=== PATIENT | female | born 1970 | race African-American/Black ===

== ENCOUNTER 2024-03-06 04:47 | Emergency (ER) | payer MEDICAID ==
[~2024-03-06] VITALS: Ht 160 cm; Wt 75.0 kg
[2024-03-06 05:00] VITALS: BP 145/88; PULSE 74; RESP 18; O2SAT 98
[2024-03-06] MEDS: KETOROLAC TROMETH 60MG/2ML VIAL IM ONE (06:43)
[2024-03-06] MEDS ORDERED: HYDR-4902 PO (06:46)
[2024-03-06] MEDS ORDERED: IBU600T PO (06:46)
== END 2024-03-06 06:57 | disposition home or self-care (01) ==
LOC: ER 04:47
DX: M16.12 Unilateral primary osteoarthritis, left hip (principal); F17.210 Nicotine dependence, cigarettes, uncomplicated; F12.90 Cannabis use, unspecified, uncomplicated; E78.5 Hyperlipidemia, unspecified; G43.909 Migraine, unspecified, not intractable, without status migrainosus; Z98.51 Tubal ligation status
CPT/HCPCS: 73502; 96372; 99283; J1885

== ENCOUNTER 2024-12-31 12:14 | Inpatient (IN) | payer MEDICAID ==
[~2024-12-31] VITALS: Ht 162.6 cm; Wt 98.5 kg
[~2024-12-31 12:14] MED LIST: HYDR-4902 PO; IBU600T PO
--- NOTE | 2024-12-31 13:00 | DVH ---
XY CHEST PORTABLE, HISTORY: body swelling, sob COMPARISON: None None TECHNICAL DATA: 1 view of the chest was obtained. FINDINGS: Lines and tubes: A right chest wall portacatheter is seen. Cardiomediastinal silhouette: normal Pulmonary vasculature: normal Lung expansion: normal Lung airspace: normal Lung interstitium: normal Pleura: normal Pneumothorax: no Bones: Unremarkable Other: no IMPRESSION: No acute intrathoracic abnormality.
--- NOTE | 2024-12-31 13:29 | ED.PDOC ---
HPI Comments 54-year-old female presents with a chief complaint of swelling to her hands and legs with associated flank pain. Patient states that she recently had a lymphectomy and lung resection at [facility] for her Stage 3 Lung Cancer. Patient mentions that her pain is localized to her right flank, radiating to her abdomen, and states that the Oxycodone and Gabapentin she was prescribed has not helped her pain. Patient is currently not on chemotherapy, but was prior to the surgery. Patient's surgery was December 12, 2024. PMHx: Stage 3 Lung Cancer, HTN, HLD PSHx: Lung lobectomy, Lymphectomy HPI: Poor Historian. Patient points to her xiphoid right lower ribcage region pain where her surgical site was. REVIEW OF SYSTEMS: CONSTITUTIONAL: Denies acute: fever, diaphoresis, chills, HEAD: Denies acute: headache, photophobia Eyes: Denies acute: Double vision, vision loss, eye pain, eye discharge. EARS: Denies acute: tinnitus, hearing loss, ear discharge, ear pain, THROAT: Denies acute: sore throat, swelling, difficulty swallowing , pain with swallowing, change in voice. NECK: Denies acute: neck pain, neck swelling, stiff neck. HEART: Denies acute : palpitations, LUNGS: Denies acute: SOB, wheezing, cough, hemoptysis ABDOMEN: Denies acute: Nausea, Vomiting, diarrhea, melena , hematemesis, hematochezia SKIN: Denies acute: rash, redness, lesions, itchiness. EXTREMITIES: Denies acute: calf pain, numbness, tingling, weakness, Denies acute: Low back pain. Neuro: Denies acute: focal neurological deficit, motor or sensory focal neurological deficit, tremors, seizure like activity, confusion, dizziness, change in mental status, loss of bowel or bladder function, cauda equina like symptoms. : Denies acute: dysuria, hematuria, flank pain, increase in urinary frequency. PSYCH: Denies acute: hallucination, suicidal ideation, homicidal ideation. FEMALE: Denies acute: abnormal vaginal bleeding, foul odor, unusual discharge. PHYSICAL EXAM: General: -----[id number]---acute distress, awake and alert. Head: normocephalic, atraumatic. Neck: supple, trachea is midline, no swelling. Throat: Normal phonation. Eyes:, no erythema, no purulent discharge, no proptosis, no icterus. Heart: regular rate, regular rhythm, no significant murmur appreciated. Lungs: no apparent respiratory distress, Able to speak in full sentences. No wheezing, no rhonchi, no crackles. No stridors Clear to auscultation bilaterally. Abdomen: Mild epigastric tender to palpation, non distended, soft, no guarding, no rebound, + bowel sounds. Evaluation of the surgical site: Incisions are clean dry and intact. Stitches are in place. No erythema or findings to suggest infection. Neuro: Awake, Alert, oriented to name, self, situation, follows commands GCS=15. Speech is normal. Skin: no petechia, no purpura, no cyanosis, non-pale, not jaundice. Lower extremities: --trace bilateral - Pitting edema no deformity, no focal swelling, no calf TTP. Noted mild puffiness of bilateral upper extremities. Makes eye contact. moves all four extremities. Face: no apparent facial droop. No CVA tenderness to percussion bilaterally. Ambulating in the ED independently. ED COURSE: DISCLAIMER: This medical document was created using an electronic medical record system with voice recognition software and computerized dictation system. Although this document has been carefully reviewed, there might still be some phonetic and typographical errors. Occasional wrong-word or "sound-alike" substitutions may have occurred due to the inherent limitations of voice recognition software. These areas are purely typographical due to imperfections of the software programs and do not reflect any compromise in the patient's medical care. Please read the chart carefully and recognize, using context, where these substitutions have occurred. Chief Complaint: Extremity Swelling Time Seen by MD: 13:22 Primary Care Provider: EFREN Reviewed Notes: Medications, Allergies Allergies: Coded Allergies: Sulfa Antibiotics (Verified Allergy, Unknown, 12/31/24) Home Meds Active Scripts Ibuprofen Micronized (MOTRIN TABLET) 600 Mg Tb, 600 MG PO TID PRN, #40 TAB *Black box warning-NSAIDS can increase risk of MD & hypertension, GI irritation, ulceration, bleed, perferation. Do not use post cardiac surgery. Use short duration/lowest effective dose. Prov:ASHLIE CINTRON MD 03/06/24 Hydrocodone-Acetaminophen (Hydrocodone Bitartrate/AC 5-325 mg) 1 Tab Tab, 1 TAB PO Q6HPRN PRN for 3 Days, #12 TAB Prov:ASHLIE CINTRON MD 03/06/24 Information Source: Patient Mode of Arrival: Ambulatory Past Medical History PAST MEDICAL HISTORY: Cancer, High Lipids, HTN Surgical History: BTL EDUCATION DEAN History: No Pertinent EDUCATION DEAN History Family History Family History: No family hx of DM, No family hx of Heart judah Social History Smoker: Cigarettes, Less Than 1 Pack/Day Alcohol: Rarely Drugs: Marijuana Lives In: Home Was a procedure done? Was a procedure done?: No CP Differential Dx Differential Diagnosis: N/A Differential Diagnosis: Other (Ddx include but not limitied to gastritis, musculoskeletal pain, radiculopathy, atypical chest pain, dissection, aneurysm, ACS, unstable angina, hiatal hernia, GERD, anxiety, costochondritis, PE, pneumothroax, neoplasm, cardiac ischemia, drug abuse, anemia.) Comment Leg swelling Ddx include but not limited to DVT, ischemic limb, pitting edema, volume overload, CHF, cellulitis, hematoma, compartment syndrome, dependent edema, venous stasis. X-Ray, Labs, Meds, VS Vital Signs Date Time Temp Pulse Resp B/P (MAP) Pulse Ox O2 Delivery O2 Flow Rate FiO2 12/31/24 18:29 158/95 12/31/24 18:15 82 19 100 Room Air* 0 21 12/31/24 18:15 98.9 82 19 158/95 (116) 100 98.9 12/31/24 14:30 137/93 12/31/24 14:20 93 16 191/99 (129) 100 12/31/24 13:57 98.3 94 16 154/95 (114) 96 98.3 12/31/24 12:19 98.5 98 18 148/88 97 98.5 Lab Test 12/31/24 18:05 12/31/24 15:45 12/31/24 13:10 Range/Units Troponin I High Sensitivity < 3 L < 3 L < 3 L </=34 ng/L Lactic Acid Level 1.9 2.1 *H 0.4-2.0 mmol/L C-Reactive Protein High Sensitivity 0.47 <1.0 mg/dL White Blood Count 6.7 4.4-10.8 10^3/uL Red Blood Count 3.51 L 4.0-5.20 10^6/uL Hemoglobin 11.5 L 12.2-16.2 g/dL Hematocrit 33.9 L 36.0-46.0 % Mean Corpuscular Volume 96.6 80.0-100.0 fL Mean Corpuscular Hemoglobin 32.6 H 28.0-32.0 pg Mean Corpuscular Hemoglobin Concent 33.8 32.0-36.0 g/dL Red Cell Distribution Width 14.3 11.8-14.3 % Platelet Count 342 140-450 10^3/uL Mean Platelet Volume 7.8 6.9-10.8 fL Neutrophils (%) (Auto) 56.2 37.0-80.0 % Lymphocytes (%) (Auto) 28.4 10.0-50.0 % Monocytes (%) (Auto) 7.0 0.0-12.0 % Eosinophils (%) (Auto) 7.4 H 0.0-7.0 % Basophils (%) (Auto) 1.0 0.0-2.0 % Neutrophils # (Auto) 3.8 1.6-8.6 10 ^3/uL Lymphocytes # (Auto) 1.9 0.4-5.4 10 ^3/uL Monocytes # (Auto) 0.5 0-1.3 10 ^3/uL Eosinophils # (Auto) 0.5 0-0.8 10 ^3/uL Basophils # (Auto) 0.1 0-0.2 10 ^3/uL Nucleated Red Blood Cells 0.2 % D-Dimer, Quantitative 4.43 H 0.0-0.49 mg/L FEU Sodium Level 143 136-145 mmol/L Potassium Level 3.8 3.5-5.1 mmol/L Chloride Level 110 H 98-107 mmol/L Carbon Dioxide Level 24 20-31 mmol/L Anion Gap 9 5-15 Blood Urea Nitrogen 14 9-23 mg/dL Creatinine 0.88 0.550-1.02 mg/dL Glomerular Filtration Rate Calc 78 >90 mL/min BUN/Creatinine Ratio 15.9 10.0-20.0 Serum Glucose 112 H 74-106 mg/dL Calcium Level 9.5 8.7-10.4 mg/dL Total Bilirubin 0.3 0.2-1.0 mg/dL Aspartate Amino Transferase (AST) 38 13-40 U/L Alanine Aminotransferase (ALT) 45 H 7-40 U/L Alkaline Phosphatase 116 46-116 U/L B-Type Natriuretic Peptide 30.90 0-100 pg/mL Total Protein 6.7 5.7-8.2 g/dL Albumin 4.1 3.2-4.8 g/dL Lipase 23 12-53 U/L Current Medications Medications (Trade) Dose Ordered Sig/Lucie Route Start Time Stop Time Status Last Admin Fentanyl Citrate 100 mcg ONCE ONCE IV 12/31/24 16:00 12/31/24 16:06 DC 12/31/24 18:29 Fentanyl Citrate 25 mcg ONCE ONCE IV 12/31/24 14:30 12/31/24 17:45 DC 12/31/24 14:30 PATIENT: NICKY VELÁSQUEZT: [id number]: [id number] : 1970 LOC: ER ROOM / BED: / AGE / SEX: 54 / F ADM STATUS: REG ER SERVICE [id number] ORDERING PHYSICIAN: MARGO STODDARD DO PROCEDURE(s): CTACH - CT ANGIO CHEST CONTRAST REASON: post surgical pain, elevated d dimer ORDER NUMBER(s): [id number], ACCESSION NUMBER(s): [id number] EXAM: CT CT ANGIO CHEST CONTRAST HISTORY: post surgical pain, elevated d dimer TECHNIQUE: CT angiogram was performed. CT scans at this facility use dose modulation, iterative reconstruction, and/or weight based dosing when appropriate to reduce radiation dose to as low as reasonably achievable. Coronal and sagittal reformations and maximum intensity projection images were created from the transaxial source data by the diagnostic technologist and workstation, as well as 3-D volume rendered images with MIPs. COMPARISON: None FINDINGS: [LOWER NECK]: Unremarkable [LYMPH NODES/MEDIASTINUM]: No abnormal lymph nodes by CT size criteria [CARDIOVASCULAR]: Normal cardiac size. No pericardial effusion. No aneurysmal dilatation of the great vessels. No significant coronary artery calcifications. [PULMONARY ARTERIES]: No pulmonary arterial filling defect. Normal caliber of the main pulmonary artery. No evidence of elevated right heart pressures. [UPPER ABDOMEN]: Unremarkable. [MUSCULOSKELETAL]: No acute fracture or aggressive focal osseous lesion. Multilevel degenerative change of the visualized spine. [CHEST WALL]: Right anterior chest Port-A-Cath [LUNG PARENCHYMA/PLEURAL SPACE]: Loculated right-sided small pleural effusion. Peribronchovascular distribution of partial segmental collapse of the right middle lobe. Right hilar lymph nodes measuring up to 12-13 mm, indeterminate. IMPRESSION: 1. No CTA evidence of pulmonary embolism. 2. Loculated right-sided small pleural effusion. 3. Peribronchovascular distribution of partial segmental collapse of the right middle lobe. 4. hilar lymph nodesIndeterminate right measuring up to 12-13 mm. ATED BY: CAROLE WALL MD DICTATED DATE/TIME: 12/31/241641 SIGNED BY: CAROLE WALL MD SIGNED DATE/TIME: 12/31/241641 Time of 1ST Reevaluation: 13:52 Reevaluation 1ST: Unchanged Patient Education/Counseling: Diagnosis, Treatment Family Education/Counseling: Other Comments MDM: patient presented with the above HPI.---postoperative pain and extremity swelling---workup was initiated. patient was found with the above mentioned diagnosis. the following medications were ordered: please refer to order lists of meds and tests obtained by myself Dr. Stoddard. Patient ED course and VS have been stabilized. Patient has been reassessed in the ED and remained in a stable condition. Pertinent incidental findings were discussed with the patient and/or family. Patient/family voices understanding and is agreeable with plan. Patient has been observed in the ED adequate length of time to insure improvement/stability. Escalation of care considered: Consideration of escalation to observation or admission Patient was ADMITTED to the medicine team for further evaluation and treatment of their presentation and for pain control. All the reports of any imaging studies that were ordered by myself were reviewed by myself. Departure 1 Departure Time of Disposition: 16:49 Impression: Primary Impression: Postoperative pain Additional Impressions: Chest pain Swelling of extremity Disposition: ADMITTED INPATIENT Admit to: [facility] Condition: Guarded Discharged With: Self Critical Care Note Critical Care Time?: No Heart Score Heart Score: Heart Score Response (Comments) Value History N/A 0 EKG N/A 0 Age N/A 0 Risk Factors N/A 0 Troponin N/A 0 Total 0 I personally scribed for MARGO STODDARD DO ([email or web address]) on 12/31/24 at 13:29. Electronically submitted by [place] ([email or web address]). I personally scribed for MARGO STODDARD DO ([email or web address]) on 12/31/24 at 13:38. Electronically submitted by [place] ([email or web address]). I personally scribed for MARGO STODDARD DO ([email or web address]) on 12/31/24 at 17:08. Electronically submitted by [place] ([email or web address]). MARGO STODDARD DO Dec 31, 2024 13:29
[2024-12-31 13:36] LABS: Hematocrit 33.9 % (36.0-46.0); Hemoglobin 11.5 g/dL (12.2-16.2); Mean Corpuscular Hemoglobin 32.6 pg (28.0-32.0); Mean Corpuscular Volume 96.6 fL (80.0-100.0); Nucleated Red Blood Cells % 0.2 %
[2024-12-31 13:48] LABS: Albumin 4.1 g/dL (3.2-4.8); Anion Gap 9 (5-15); BUN/Creatinine Ratio 15.9 (10.0-20.0); Bilirubin, Total 0.3 mg/dL (0.2-1.0); Blood Urea Nitrogen 14 mg/dL (9-23); Calcium 9.5 mg/dL (8.7-10.4); Carbon Dioxide 24 mmol/L (20-31); Potassium 3.8 mmol/L (3.5-5.1); Sodium 143 mmol/L (136-145); Total Protein 6.7 g/dL (5.7-8.2)
[2024-12-31 13:57] LABS: Alanine Aminotransferase 45 U/L (7-40); Alkaline Phosphatase 116 U/L (46-116); Chloride 110 mmol/L (98-107); Glucose 112 mg/dL (74-106)
[2024-12-31 13:59] LABS: Lactic Acid w/Reflex 2.1 mmol/L (0.4-2.0)
[2024-12-31] MEDS: fentaNYL CITRATE 100 MCG/2 ML VL IV ONE ×3 (14:30→18:29)
[2024-12-31] MEDS: IOHEXOL 350 MG/ML 100ML IJ ONE ×2 (15:25→15:56)
--- NOTE | 2024-12-31 16:45 | DVH ---
EXAM: CT CT ANGIO CHEST CONTRAST HISTORY: post surgical pain, elevated d dimer TECHNIQUE: CT angiogram was performed. CT scans at this facility use dose modulation, iterative recon struction, and/or weight based dosing when appropriate to reduce radiation dose to as low as reasonab ly achievable. Coronal and sagittal reformations and maximum intensity projection images were created from the transaxial source data by the manufacturing engineering technologist and workstation, as well as 3-D volume render ed images with MIPs. COMPARISON: None FINDINGS: [LOWER NECK]: Unremarkable [LYMPH NODES/MEDIASTINUM]: No abnormal lymph nodes by CT size criteria [CARDIOVASCULAR]: Normal cardiac size. No pericardial effusion. No aneurysmal dilatation of the great vessels. No significant coronary artery calcifications. [PULMONARY ARTERIES]: No pulmonary arterial filling defect. Normal caliber of the main pulmonary alexander ry. No evidence of elevated right heart pressures. [UPPER ABDOMEN]: Unremarkable. [MUSCULOSKELETAL]: No acute fracture or aggressive focal osseous lesion. Multilevel degenerative hernandez ge of the visualized spine. [CHEST WALL]: Right anterior chest Port-A-Cath [LUNG PARENCHYMA/PLEURAL SPACE]: Loculated right-sided small pleural effusion. Peribronchovascular di stribution of partial segmental collapse of the right middle lobe. Right hilar lymph nodes measuring up to 12-13 mm, indeterminate. IMPRESSION: 1. No CTA evidence of pulmonary embolism. 2. Loculated right-sided small pleural effusion. 3. Peribronchovascular distribution of partial segmental collapse of the right middle lobe. 4. hilar lymph nodesIndeterminate right measuring up to 12-13 mm.
--- NOTE | 2024-12-31 18:01 | DVHHP2 ---
Admitting Diagnosis: Arm swollen History of Present Illness 54-year-old female presents with a chief complaint of swelling to her hands and legs with associated flank pain. Patient states that she recently had a lymphectomy and lung resection at [facility] for her Stage 3 Lung Cancer. Patient mentions that her pain is localized to her right flank, radiating to her abdomen, and states that the Oxycodone and Gabapentin she was prescribed has not helped her pain. Patient is currently not on chemotherapy, but was prior to the surgery. Patient's surgery was December 12, 2024. PMHx: Stage 3 Lung Cancer, HTN, HLD PSHx: Lung lobectomy, Lymphectomy REVIEW OF SYSTEMS: CONSTITUTIONAL: Denies acute: fever, diaphoresis, chills, HEAD: Denies acute: headache, photophobia Eyes: Denies acute: Double vision, vision loss, eye pain, eye discharge. EARS: Denies acute: tinnitus, hearing loss, ear discharge, ear pain, THROAT: Denies acute: sore throat, swelling, difficulty swallowing , pain with swallowing, change in voice. NECK: Denies acute: neck pain, neck swelling, stiff neck. HEART: Denies acute : palpitations, LUNGS: Denies acute: SOB, wheezing, cough, hemoptysis ABDOMEN: Denies acute: Nausea, Vomiting, diarrhea, melena , hematemesis, hematochezia SKIN: Denies acute: rash, redness, lesions, itchiness. EXTREMITIES: Denies acute: calf pain, numbness, tingling, weakness, Denies acute: Low back pain. Neuro: Denies acute: focal neurological deficit, motor or sensory focal neurological deficit, tremors, seizure like activity, confusion, dizziness, change in mental status, loss of bowel or bladder function, cauda equina like symptoms. : Denies acute: dysuria, hematuria, flank pain, increase in urinary frequency. PSYCH: Denies acute: hallucination, suicidal ideation, homicidal ideation. FEMALE: Denies acute: abnormal vaginal bleeding, foul odor, unusual discharge. 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 Do not use post cardiac surgery. Use short duration/lowest effective dose. Prov:ASHLIE CINTRON MD 03/06/24 Hydrocodone-Acetaminophen (Hydrocodone Bitartrate/AC 5-325 mg) 1 Tab Tab, 1 TAB PO Q6HPRN PRN for 3 Days, #12 TAB Prov:ASHLIE CINTRON MD 03/06/24 Current Medications Current Medications Medications (Trade) Dose Ordered Sig/Lucie Route PRN Reason Start Time Stop Time Status Last Admin Hydromorphone HCl (Dilaudid Injection) 1 mg Q4HPRN PRN IV SEVERE PAIN (7-10 PAIN SCALE) 12/31/24 19:15 UNV Hydromorphone HCl (Dilaudid Injection) 1 mg Q4HPRN PRN IV break thru pain 12/31/24 19:15 UNV Vancomycin HCl 0 ml @ 0 mls/hr UD IV 12/31/24 19:15 UNV Piperacillin Sod/ Tazobactam Sod 100 ml @ 25 mls/hr Q8HR IV 12/31/24 22:00 UNV Pantoprazole Sodium (Protonix) 40 mg DAILY IV 01/01/25 10:00 UNV Sodium Chloride (Saline Lock Ns) 10 ml Q8HR IV 12/31/24 22:00 UNV Docusate Sodium (Colace Capsule) 100 mg BIDPRN PRN PO FOR CONSTIPATION 12/31/24 19:15 UNV Acetaminophen (Tylenol Tablet) 650 mg Q6HP PRN PO PAIN SCALE 1-3 OR TEMP>100.4 12/31/24 19:15 UNV Acetaminophen/ Hydrocodone Bitart ([place] 5/325MG Tab) 1 tab Q4HP PRN PO MODERATE PAIN (4-6 PAIN SCALE) 12/31/24 19:15 UNV Ondansetron HCl (Zofran) 4 mg Q4HP PRN IV NAUSEA / VOMITING 12/31/24 19:15 UNV Enoxaparin Sodium (Lovenox) 40 mg DAILY SC 01/01/25 10:00 UNV Hydralazine HCl (Apresoline Injection) 10 mg Q6HP PRN IV SBP>150 12/31/24 19:15 UNV Diphenhydramine HCl (Benadryl Injection) 25 mg Q4HP PRN IV FOR ITCHING 12/31/24 19:15 UNV Vital Signs Vital Signs Date Time Temp Pulse Resp B/P (MAP) Pulse Ox O2 Delivery O2 Flow Rate FiO2 12/31/24 18:29 158/95 12/31/24 18:15 82 19 100 Room Air* 0 21 12/31/24 18:15 98.9 98.9 Physical Exam Generally-54 years old woman, overweight, lying in bed. Mild distress HEENT-atraumatic normocephalic Heart-regular rate and rhythm Lungs decreased breath sounds right lung tan Abdomen soft nontender nondistended Musculoskeletal-bilateral upper extremity edema, mild swelling lower extremity Neuro-AO x3, no focal deficits SEPSIS Sepsis Screen Date sepsis recognized/suspect: Dec 31, 2024 Time Sepsis recognized/suspect: 1221 Recent Procedure: No On Antibiotic Therapy: No Respiratory Rate >20: No Heart Rate >90: Yes Temp<36 C (96.8 F) or >38.3 C: No SBP <90 or MAP <65 mmHG: No New Acute Mental Status Change: No Is the patient on CPAP, BIPAP,: No Physician Orders Boiler Technician (12/31/24 ) Chest Portable (12/31/24 12:37) Electrocardigram (12/31/24 12:37) Ct Angio Chest Contrast (12/31/24 14:29) Lt Upper Extremity W Contras (12/31/24 19:04) Rt Upper Extremity With Cont (12/31/24 19:04) Bi Lat Upper Dvt (12/31/24 19:04) Hydromorphone Injection (Dilaudid Inject (12/31/24 19:15) Hydromorphone Injection (Dilaudid Inject (12/31/24 19:15) Vancomycin Per Pharmacy (12/31/24 19:15) Piperacillin-Tazob 3.375gm (Zosyn 3.375g (12/31/24 22:00) Pantoprazole (Protonix) (01/01/25 10:00) Complete Blood Count (01/01/25 05:00) Complete Blood Count (01/02/25 05:00) Complete Blood Count (01/03/25 05:00) Complete Blood Count (01/04/25 05:00) Complete Blood Count (01/05/25 05:00) Comprehensive Metabolic Panel (01/01/25 05:00) Comprehensive Metabolic Panel (01/02/25 05:00) Comprehensive Metabolic Panel (01/03/25 05:00) Comprehensive Metabolic Panel (01/04/25 05:00) Comprehensive Metabolic Panel (01/05/25 05:00) C-Reactive Protein (12/31/24 19:06) Admit (12/31/24 19:06) Code Status (12/31/24:) Vital Signs .PER UNIT PROTOCOL (12/31/24 19:06) Review Orders With Adm. (12/31/24 19:06) Encourage Activity As Tolerate (12/31/24 19:06) Regular Diet (01/01/25 Breakfast) Sodium Chloride Lock (Saline Lock Ns) (12/31/24 22:00) Docusate Sodium Capsule (Colace Capsule) (12/31/24 19:15) Acetaminophen Tablet (Tylenol Tablet) (12/31/24 19:15) Notify Md Of Changes From Base (12/31/24 19:06) Advance Directive (12/31/24 19:06) Patient Condition (12/31/24 19:06) Allergies (12/31/24 19:06) Hydrocodone-Acet 5/325mg Tab ([place] 5/32 (12/31/24 19:15) Ondansetron Hcl (Zofran) (12/31/24 19:15) Enoxaparin Sodium (Lovenox) (01/01/25 10:00) Hydralazine Injection (Apresoline Inject (12/31/24 19:15) Diphenhdramine Injection (Benadryl Injec (12/31/24 19:15) Respiratory Culture W/ Gs (12/31/24 19:11) Blood Culture (12/31/24 19:11) Pharmacy To Reconcile Home Med (12/31/24 19:12) Vital Signs Date Time Temp Pulse Resp B/P (MAP) Pulse Ox O2 Delivery O2 Flow Rate FiO2 12/31/24 18:29 158/95 12/31/24 18:15 82 19 100 Room Air* 0 21 12/31/24 18:15 98.9 82 19 158/95 (116) 100 98.9 12/31/24 14:30 137/93 12/31/24 14:20 93 16 191/99 (129) 100 12/31/24 13:57 98.3 94 16 154/95 (114) 96 98.3 12/31/24 12:19 98.5 98 18 148/88 97 98.5 Laboratory Tests Test 12/31/24 13:10 12/31/24 15:45 Lactic Acid Level 2.1 mmol/L (0.4-2.0) *H 1.9 mmol/L (0.4-2.0) White Blood Count 6.7 10^3/uL (4.4-10.8) Medications Medications Dose Ordered Sig/Lucie Route Start Time Stop Time Status Last Admin Dose Admin Fentanyl Citrate 25 mcg ONCE ONCE IV 12/31/24 14:30 12/31/24 17:45 DC 12/31/24 14:30 Fentanyl Citrate 100 mcg ONCE ONCE IV 12/31/24 16:00 12/31/24 16:06 DC 12/31/24 18:29 Results Labs Test 12/31/24 18:05 12/31/24 15:45 12/31/24 13:10 Range/Units Troponin I High Sensitivity < 3 L </=34 ng/L Lactic Acid Level 1.9 0.4-2.0 mmol/L White Blood Count 6.7 4.4-10.8 10^3/uL Red Blood Count 3.51 L 4.0-5.20 10^6/uL Hemoglobin 11.5 L 12.2-16.2 g/dL Hematocrit 33.9 L 36.0-46.0 % Mean Corpuscular Volume 96.6 80.0-100.0 fL Mean Corpuscular Hemoglobin 32.6 H 28.0-32.0 pg Mean Corpuscular Hemoglobin Concent 33.8 32.0-36.0 g/dL Red Cell Distribution Width 14.3 11.8-14.3 % Platelet Count 342 140-450 10^3/uL Mean Platelet Volume 7.8 6.9-10.8 fL Neutrophils (%) (Auto) 56.2 37.0-80.0 % Lymphocytes (%) (Auto) 28.4 10.0-50.0 % Monocytes (%) (Auto) 7.0 0.0-12.0 % Eosinophils (%) (Auto) 7.4 H 0.0-7.0 % Basophils (%) (Auto) 1.0 0.0-2.0 % Neutrophils # (Auto) 3.8 1.6-8.6 10 ^3/uL Lymphocytes # (Auto) 1.9 0.4-5.4 10 ^3/uL Monocytes # (Auto) 0.5 0-1.3 10 ^3/uL Eosinophils # (Auto) 0.5 0-0.8 10 ^3/uL Basophils # (Auto) 0.1 0-0.2 10 ^3/uL Nucleated Red Blood Cells 0.2 % D-Dimer, Quantitative 4.43 H 0.0-0.49 mg/L FEU Sodium Level 143 136-145 mmol/L Potassium Level 3.8 3.5-5.1 mmol/L Chloride Level 110 H 98-107 mmol/L Carbon Dioxide Level 24 20-31 mmol/L Anion Gap 9 5-15 Blood Urea Nitrogen 14 9-23 mg/dL Creatinine 0.88 0.550-1.02 mg/dL Glomerular Filtration Rate Calc 78 >90 mL/min BUN/Creatinine Ratio 15.9 10.0-20.0 Serum Glucose 112 H 74-106 mg/dL Calcium Level 9.5 8.7-10.4 mg/dL Total Bilirubin 0.3 0.2-1.0 mg/dL Aspartate Amino Transferase (AST) 38 13-40 U/L Alanine Aminotransferase (ALT) 45 H 7-40 U/L Alkaline Phosphatase 116 46-116 U/L B-Type Natriuretic Peptide 30.90 0-100 pg/mL Total Protein 6.7 5.7-8.2 g/dL Albumin 4.1 3.2-4.8 g/dL Lipase 23 12-53 U/L Primary Diagnosis Chest pain Postoperative pain Elevated D-dimer PE is ruled out Bilateral upper extremity edema rule out DVT possible cellulitis Plan CT chest ruled out PE CT bilateral upper extremity to assess for cellulitis DVT study bilateral upper extremity Vanc and Zosyn for broad-spectrum antibiotics. Check blood culture and sputum culture Check CRP and procalcitonin Pain control Antiemetic IV fluids CT abdomen and pelvis to assess for kidney stones Regular diet Full code Lovenox for DVT prophylaxis No GI prophylaxis needed Plan discussed with: Patient Problems List: (1) Bilateral arm pain (2) Postoperative pain Status: Acute (3) Abdominal pain of unknown etiology Status: Acute Date of Service: Dec 31, 2024 Billing Provider: JACKY KHAN MD Common Visit Codes: 20460-[id number] INP/OBS CARE (MOD) JACKY KHAN MD Dec 31, 2024 18:01
[2024-12-31 18:15] VITALS: PULSE 82; RESP 19; O2SAT 100
[2024-12-31] MEDS ORDERED: ACETAMINOPHEN 325 MG TAB PO PRN (19:15)
[2024-12-31] MEDS ORDERED: hydrALAZINE HCL 20 MG/ML VL IV PRN (19:15)
[2024-12-31] MEDS ORDERED: VANCOMYCIN PER PHARMACY 0 MG IV SCH (19:15)
[2024-12-31] MEDS ORDERED: HYDROcodone-ACET 5/325MG TAB PO PRN (19:15)
[2024-12-31] MEDS ORDERED: HYDROmorphone HCL 2 MG/ML VL/or syr IV PRN (19:15)
[2024-12-31] MEDS ORDERED: DOCUSATE SOD 100 MG CAP PO PRN (19:15)
[2024-12-31] MEDS ORDERED: ONDANSETRON HCL 4 MG/2 ML VIAL IV PRN (19:15)
--- NOTE | 2024-12-31 19:58 | DVH ---
BILATERAL UPPER EXTREMITY VENOUS DUPLEX REASON FOR EXAMINATION: b/l edema and pain r/o dvt COMPARISON: None TECHNIQUE: Using real-time freeze-frame technique with a high-frequency transducer, multiple longitu dinal and transverse sections were obtained. Simultaneous color flow and spectral Doppler imaging wa s performed. FINDINGS: RIGHT: Deep veins Internal jugular vein: Compressible. No thrombus identified. Expected Doppler flow. Subclavian vein: Expected Doppler flow. Axillary vein: Compressible. No thrombus identified. Expected Doppler flow. Brachial vein: Compressible. No thrombus identified. Expected Doppler flow. Radial vein: Compressible. No thrombus identified. Expected Doppler flow. Ulnar vein: Compressible. No thrombus identified. Expected Doppler flow. Superficial veins Cephalic vein: Compressible. No thrombus identified. Expected Doppler flow. Basilic vein: Compressible. No thrombus identified. Expected Doppler flow. LEFT: Deep veins Internal jugular vein: Compressible. No thrombus identified. Expected Doppler flow. Subclavian vein: Expected Doppler flow. Axillary vein: Compressible. No thrombus identified. Expected Doppler flow. Brachial vein: Compressible. No thrombus identified. Expected Doppler flow. Radial vein: Compressible. No thrombus identified. Expected Doppler flow. Ulnar vein: Compressible. No thrombus identified. Expected Doppler flow. Superficial veins Cephalic vein: Compressible. No thrombus identified. Expected Doppler flow. Basilic vein: There is noncompressible, nonocclusive wall adherent thrombus in the basilic vein in th e upper arm and in the forearm. IMPRESSION: No evidence of deep venous thrombosis in either upper extremity. There is nonocclusive thrombus in the left basilic vein in the upper arm and forearm that may be see wheeler sabrina.
[2024-12-31] MEDS: VANCOMYCIN 1GM/250ML IV SCH (20:13)
[2024-12-31] MEDS: HYDROmorphone HCL 2 MG/ML VL/or syr IV PRN (20:17)
[2024-12-31] MEDS: diphenhdrAMINE HCL 50 MG/1 ML VL IV PRN (22:24)
[2024-12-31] MEDS: SODIUM CHLOR 0.9% PF (SALINE LOCK) 10ML VIAL/SYR IV SCH (22:28)
[2024-12-31] MEDS: PIPERACILLIN-TAZOB 3.375GM 100 ML IV SCH (23:08)
--- NOTE | 2025-01-01 00:33 | DVH ---
Exam: CT CT AB PEL WO CON-NO ORAL OR IV History: ABD PAIN R/O INFECTION Comparison Study: None Technique: Multidetector spiral CT of the abdomen was performed from lung bases to pubic symphysis. Imaging was performed without IV contrast. Axial, coronal and sagittal multiplanar reformats were ob tained from the axial data set by the technologist. Radiation Dose : 1. Abdomen/Pelvis: CTDIvol 16.04 mGy, DLP 1029.9 mGy*cm. Findings: Evaluation of solid organs is limited due to lack of intravenous contrast use. Lung Bases: Small right-sided pleural effusion and mild subsegmental atelectasis at the right lung ba se. Normal heart size. No pericardial effusion. Liver: Normal in size. No focal lesions noted. Gallbladder and Biliary Tree: No abnormality demonstrated. Spleen: No abnormality demonstrated. Pancreas: No abnormality demonstrated. Adrenal Glands: No abnormality demonstrated. Kidneys: No abnormality demonstrated. Bladder: Unremarkable. Bowel: Stomach appears grossly unremarkable. No abnormally dilated or thick-walled loops of large or small bowel noted. Moderate amount of stool present throughout the large bowel. Appendix appears unre markable. Ascites: Absent Lymphadenopathy: No evidence of lymphadenopathy. Abdominal Wall and Mesentery: Unremarkable. Vasculature: Unremarkable. Pelvic Organs: Unremarkable. Musculoskeletal: No bony lesions or fracture. IMPRESSION: No acute abdominal/pelvic findings. Radiation optimization: All CT scans at this facility use at least one of these dose optimization grace hniques: automated exposure control mA and/or kV adjustment per patient size (includes targeted exam s where dose is matched to clinical indication) or iterative reconstruction.
--- NOTE | 2025-01-01 03:54 | DVH ---
EXAM: CT RT UPPER EXTREMITY WITH CONT, CT LT UPPER EXTREMITY W CONTRAS INDICATION: b/l arm edema and erythema assess for infection EXAM DATE: 12/31/2024 09:33 PM COMPARISON: None TECHNIQUE: Multiple axial CT images of the bilateral extremties were obtained using bone algorithm. Axial and coronal reformatting was done. Bone and soft tissue windows were reviewed. Radiation Dose Information: CT Dose: CTDI volume is 21.79 mGy. Dose-length product is 1608.45 mGy*cm Findings/Impression: Bilateral upper extremities: There is no evidence of an acute fracture, dislocation, blastic, or lytic lesions. No radiopaque foreign bodies. No joint effusion or superficial soft tissue abnormalities. Diffuse soft tissue swelling which could represent cellulitis. Possible loculated right pleural effus ion. No drainable fluid collection. No osteomyelitis.
[2025-01-01 07:15] VITALS: PULSE 81; RESP 15; TEMP 98.5; O2SAT 95
[2025-01-01 09:57] LABS: Hematocrit 34.3 % (36.0-46.0); Hemoglobin 11.6 g/dL (12.2-16.2); Mean Corpuscular Hemoglobin 32.6 pg (28.0-32.0); Mean Corpuscular Volume 96.1 fL (80.0-100.0); Nucleated Red Blood Cells % 0.0 %
[2025-01-01 10:00] LABS: Alanine Aminotransferase 37 U/L (7-40); Albumin 4.0 g/dL (3.2-4.8); Alkaline Phosphatase 111 U/L (46-116); Anion Gap 6 (5-15); BUN/Creatinine Ratio 10.6 (10.0-20.0); Bilirubin, Total 0.6 mg/dL (0.2-1.0); Blood Urea Nitrogen 9 mg/dL (9-23); Calcium 9.5 mg/dL (8.7-10.4); Carbon Dioxide 26 mmol/L (20-31); Glucose 96 mg/dL (74-106); Potassium 3.8 mmol/L (3.5-5.1); Sodium 140 mmol/L (136-145); Total Protein 7.0 g/dL (5.7-8.2)
[2025-01-01 10:04] LABS: Chloride 108 mmol/L (98-107)
[2025-01-01] MEDS: PANTOPRAZOLE 40 MG/10 ML VIAL INJ IV SCH (10:32)
[2025-01-01] MEDS: ENOXAPARIN SOD 40 MG/0.4 ML SYRINGE SC SCH (10:33)
[2025-01-01 12:30] VITALS: BP 153/94; PULSE 82; RESP 17; O2SAT 95
== END 2025-01-01 12:31 | disposition left against medical advice (07) | DRG 383 ==
LOC: ER 12:14 → OVERFLOW 19:06
PROVIDERS: ADMIT Internal Medicine; ATTEND Internal Medicine
DX: L03.113 Cellulitis of right upper limb (principal); E87.20 Acidosis, unspecified; E78.5 Hyperlipidemia, unspecified; I10 Essential (primary) hypertension; L03.114 Cellulitis of left upper limb; F17.210 Nicotine dependence, cigarettes, uncomplicated; G89.18 Other acute postprocedural pain; Z53.29 Procedure and treatment not carried out because of patient's decision for other reasons; Z88.2 Allergy status to sulfonamides; Z82.49 Family history of ischemic heart disease and other diseases of the circulatory system; Z85.118 Personal history of other malignant neoplasm of bronchus and lung
CPT/HCPCS: 36415; 71045; 71275; 73201; 74176; 80053; 83605; 83690; 83880; 84484; 85025; 85379; 86141; 87040; 93970; 96365; 96375; G0378; J2470; J2543